=== PATIENT | female | born 1985 | race Caucasian/White ===

== ENCOUNTER 2016-08-29 07:51 | Emergency (ER) | payer OTHER ==
[~2016-08-29] VITALS: Ht 157.5 cm; Wt 101.0 kg
[~2016-08-29 07:51] MED LIST: BCPILLS PO; REVIEWED; ZYRUNK
[2016-08-29 07:54] VITALS: TEMP 36.4; Ht 157.5 cm; Wt 101.0 kg
--- NOTE | 2016-08-29 08:15 | EMERGENCY ROOM VISIT NOTE ---
ED Visit Note First contact with patient: 07:58 CHIEF COMPLAINT: Foot pain HISTORY OF PRESENT ILLNESS: This 30-year-old female patient presents to the emergency department ambulatory complaining of swelling and pain in the right foot at rest and worse with weight bearing. The patient works here at [employer] and was pulling a large cart full of food trays behind her yesterday. She states that the car ran into the back of her right foot. The patient rates the pain as sharp and 7/10. The patient has no relief of the pain. The patient is able to walk. No numbness or weakness. No ankle pain. There are no lacerations of the foot. The patient is able to move all of their toes and their ankle without pain. The patient has had a previous fracture in this foot. REVIEW OF SYSTEMS: GENERAL: A 6 system review of systems was completed with positives and pertinent negatives in the HPI. ALLERGIES: No known allergies MEDICATIONS: control pills PMH: None SOCIAL HISTORY: The patient is employed. She lives locally. PHYSICAL EXAM: Vital Signs: Reviewed Nurse's notes, vital signs stable. GENERAL : This is a 30-year-old female, in no acute distress, but appears in pain, well- developed, well-nourished. MUSCULOSKELETAL: There is no visual deformity of the right foot. There is minimal erythema but no ecchymosis. There is no warmth. There is tenderness and swelling over the posterior aspect of the right foot. The range of motion of the foot is non-limited secondary to pain. There is no tenderness over the plantar fascia. Dorsi flexion 5/5 and Plantar flexion 5/5. The skin is intact and there are no lacerations or puncture wounds. Dorsalis pedis pulse 2+. Capillary refill less than 2 seconds. EMERGENCY DEPARTMENT COURSE: I examined the patient. An X-ray of the right foot and ankle foot were reviewed by myself and radiology and reveals old fracture to the right fifth metatarsal and distal fibula. The patient states that this is where her foot was broken in the past. The patient was placed in a walking boot and declined crutches. The patient was discharged home in good condition. RIGHT ANKLE MIN 3 VIEWS ROUTINE CLINICAL HISTORY: right ankle pain Right pain COMPARISON: None. DISCUSSION: The bones and joint spaces appear intact. There is no evidence of fracture, dislocation or bony disease. Small old avulsion well corticated adjacent to the distal fibula. Ankle mortise is anatomically aligned. IMPRESSION: Small avulsion tip distal fibula appearing to be old radiographically. Mild soft tissue edema. RIGHT FOOT 3 VIEWS CLINICAL HISTORY: Right foot pain. FINDINGS: 3 views of the right foot are obtained. No prior studies are available for comparison at the time of dictation. The skeletal structures are well mineralized. No acute fracture is identified. An os trigonum is incidentally noted. There is cortical irregularity with faint lucency seen involving the proximal shaft of the fifth metatarsal. This may represent a subacute/healing fracture. The overlying soft tissues are within normal limits. IMPRESSION: 1. No acute fracture is identified. 2. There is ill-defined lucency with mild cortical regularity seen involving the proximal shaft of the fifth metatarsal. This is indeterminant, but may represent a subacute/healing fracture. Clinical correlation will be essential. Current/Historical Medications Scheduled Control Pills ( Control Pills), 1 TAB PO DAILY Miscellaneous Medications Cetirizine (Zyrtec Unkown Dose) Allergies Uncoded Allergies: NKDA (Allergy, Mild, 01/06/06) Vital Signs Date Time Temp Pulse Resp B/P Pulse Ox O2 Delivery O2 Flow Rate FiO2 08/29/16 09:36 70 16 127/94 98 Room Air 08/29/16 07:54 36.4 79 18 140/98 98 Room Air Departure Information Impression Primary Impression: Right foot sprain Additional Impression: Contusion of right foot Dispostion Home / Self-Care Condition GOOD Referrals Kendra Vasquez (PCP) Luda Mason Patient Instructions ED Sprain Foot, [facility] Additional Instructions Ibuprofen 600 mg every 6-8 hours for moderate pain Wear the walking boot when up and about over the next 2-3 days Follow-up with occupational medicine or orthopedics if the pain is not improving in the next 2-3 days Return with any worsening symptoms Problem Qualifiers Primary Impression: Right foot sprain Encounter type: initial encounter Qualified Codes: S93.601A - Unspecified sprain of right foot, initial encounter Additional Impression: Contusion of right foot Encounter type: initial encounter Qualified Codes: S90.31XA - Contusion of right foot, initial encounter
--- NOTE | 2016-08-29 09:03 | DIAGNOSTIC IMAGING REPORT ---
RIGHT FOOT 3 VIEWS CLINICAL HISTORY: Right foot pain. FINDINGS: 3 views of the right foot are obtained. No prior studies are available for comparison at the time of dictation. The skeletal structures are well mineralized. No acute fracture is identified. An os trigonum is incidentally noted. There is cortical irregularity with faint lucency seen involving the proximal shaft of the fifth metatarsal. This may represent a subacute/healing fracture. The overlying soft tissues are within normal limits. IMPRESSION: 1. No acute fracture is identified. 2. There is ill-defined lucency with mild cortical regularity seen involving the proximal shaft of the fifth metatarsal. This is indeterminant, but may represent a subacute/healing fracture. Clinical correlation will be essential. Electronically signed by: David Edward M.D. 08/29/2016 9:02 AM Dictated Date/Time: 08/29/2016 9:00 AM
--- NOTE | 2016-08-29 09:23 | DIAGNOSTIC IMAGING REPORT ---
RIGHT ANKLE MIN 3 VIEWS ROUTINE CLINICAL HISTORY: right ankle pain Right pain COMPARISON: None. DISCUSSION: The bones and joint spaces appear intact. There is no evidence of fracture, dislocation or bony disease. Small old avulsion well corticated adjacent to the distal fibula. Ankle mortise is anatomically aligned. IMPRESSION: Small avulsion tip distal fibula appearing to be old radiographically. Mild soft tissue edema. Electronically signed by: Carlos Bassett M.D. 08/29/2016 9:22 AM Dictated Date/Time: 08/29/2016 9:20 AM
[2016-08-29 09:36] VITALS: BP 127/94; PULSE 70; O2SAT 98
== END 2016-08-29 09:50 | disposition home or self-care (01) ==
LOC: C.EDB 07:52
DX: S93.601A Unspecified sprain of right foot, initial encounter (principal); S90.31XA Contusion of right foot, initial encounter; W22.8XXA Striking against or struck by other objects, initial encounter; Y92.239 Unspecified place in hospital as the place of occurrence of the external cause; Y99.0 Civilian activity done for income or pay; Z79.3 Long term (current) use of hormonal contraceptives

== ENCOUNTER → 2017-03-04 | Outpatient (CLI) | payer OTHER ==
[~2017-03-04] MED LIST changes: -REVIEWED
[2017-03-04 13:09] LABS: CHOLESTEROL/HDL RATIO 3.5
== END | disposition home or self-care (01) ==
LOC: C.LAB 09:37
PROVIDERS: ATTEND Nurse Practitioner Family
DX: Z00.00 Encounter for general adult medical examination without abnormal findings (principal)

== ENCOUNTER → 2017-07-30 | Outpatient (CLI) | payer OTHER | END | disposition home or self-care (01) | LOC: C.LAB1850 10:56 | PROVIDERS: ATTEND Obstetrics & Gynecology | DX: Z11.3 Encounter for screening for infections with a predominantly sexual mode of transmission (principal); Z32.01 Encounter for pregnancy test, result positive ==

== ENCOUNTER → 2017-07-30 | Outpatient (CLI) | payer OTHER | END | disposition home or self-care (01) | LOC: C.PAPS 13:35 | PROVIDERS: ATTEND Obstetrics & Gynecology | DX: Z01.419 Encounter for gynecological examination (general) (routine) without abnormal findings (principal) ==

== ENCOUNTER → 2017-08-01 | Outpatient (CLI) | payer OTHER | END | disposition home or self-care (01) | LOC: C.LAB 11:17 | PROVIDERS: ATTEND Obstetrics & Gynecology | DX: Z32.01 Encounter for pregnancy test, result positive (principal) ==

== ENCOUNTER → 2017-08-13 | Outpatient (CLI) | payer OTHER | END | disposition home or self-care (01) | LOC: C.LABSPEC 16:17 | PROVIDERS: ATTEND Obstetrics & Gynecology | DX: Z34.01 Encounter for supervision of normal first pregnancy, first trimester (principal) ==

== ENCOUNTER → 2017-09-04 | Outpatient (CLI) | payer OTHER ==
[2017-09-04 12:18] LABS: BASO % 0.4 %; BASO ABS # 0.04 K/uL (0-0.2); EOS % 0.6 %; EOS ABS # 0.07 K/uL (0-0.5); HEMATOCRIT 39.7 % (37-47); HEMOGLOBIN 13.4 g/dL (12.0-16.0); IG# 0.03 K/uL (0.00-0.02); LYMPH % 23.2 %; LYMPH ABS # 2.61 K/uL (1.2-3.4); MEAN CELL VOLUME 91.7 fL (80-100); MEAN CORPUSCULAR HEMOGLOBIN 30.9 pg (25-34); MEAN CORPUSCULAR HGB CONC 33.8 g/dl (32-36); MEAN PLATELET VOLUME 9.6 fL (7.4-10.4); MONO % 5.2 %; MONO ABS # 0.59 K/uL (0.11-0.59); NEUT % 70.3 %; NEUT ABS # 7.92 K/uL (1.4-6.5); PLATELET COUNT 358 K/uL (130-400); RED CELL DISTRIBUTION WIDTH CV 12.9 % (11.5-14.5); RED CELL DISTRIBUTION WIDTH SD 43.3 fL (36.4-46.3); WHITE BLOOD COUNT 11.26 K/uL (4.8-10.8)
== END ==
LOC: C.LAB 10:11
PROVIDERS: ATTEND Obstetrics & Gynecology
DX: Z34.01 Encounter for supervision of normal first pregnancy, first trimester (principal)

== ENCOUNTER → 2017-10-22 | Outpatient (CLI) | payer OTHER | END | disposition home or self-care (01) | LOC: C.LAB1850 10:06 | PROVIDERS: ATTEND Obstetrics & Gynecology | DX: Z34.02 Encounter for supervision of normal first pregnancy, second trimester (principal) ==

== ENCOUNTER → 2018-03-03 | Outpatient (CLI) | payer OTHER | END | disposition home or self-care (01) | LOC: C.LABSPEC 17:31 | PROVIDERS: ATTEND Obstetrics & Gynecology | DX: Z34.03 Encounter for supervision of normal first pregnancy, third trimester (principal) ==

== ENCOUNTER 2021-09-23 07:59 | Inpatient (IN) ==
[2021-09-23] MEDS ORDERED: OXYTOCIN 30 UNITS/500 ML BAG IV PRN ×3 (08:15→19:44)
--- NOTE | 2021-09-23 08:32 | History & Physical Report ---
Date of Service September 23, 2021 Assessment & Plan (1) Supervision of normal intrauterine in multigravida: Plan: Admit to L&D. Labs, IV, EFM/toco. OK for epidural when she desires. Willing for pitocin if needed. History of Present Illness Chief Complaint: labor Primary Care Provider: NO PCP 35yo @ 39 2/7, gush of clear fluid at midnight, then later began to develop contractions and also began to see greenish fluid. + movement. No vaginal bleeding. with obesity. Patient also has hearing impairment, uses hearing aids. Allergies Allergy/AdvReac Type Severity Reaction Status Date / Time mold Allergy Mild Wheezing Verified 09/23/21 08:26 No Known Drug Allergies Allergy Unknown . Verified 09/23/21 08:21 Home Medications Medication Instructions Recorded Confirmed Type prenat.vits,nahomi,[id number] 1 tab PO DAILY 02/24/21 09/18/21 History Patient History Medical History (Updated 09/04/21 @ 10:47 by Chelsea Cramer RN) 6 weeks follow-up Allergic rhinitis Asthma Bronchitis Counseling for initiation of control method Dysmenorrhea Encounter for routine pelvic examination Hearing impairment bilateral hearing aids Metrorrhagia Obstructive lung disease Restrictive lung disease Vaginal cyst Surgical History elective or therapeutic [place] teeth extracted Family History Grandfather (Maternal) Colorectal cancer Mother Endometriosis Uterine leiomyoma Dyslipidemia Family/Other Diabetes Osteoporosis Hypertension Father Afib Denies family history of Ovarian cancer Breast cancer Social History Smoking Status: Never smoker Second Hand Exposure: No; Hx Alcohol Use: No Hx Substance Use: No Preferred Language: Lithuanian marital status: Single marital status details: Db (32) [phone] Current Living Situation: Significant Other Current Living Situation Comment: lives with fob and son, 1 dog. 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 FHT Cat 1 [place] Q2-3 min SVE 2/80/-2 Constitutional: WD/WN, vitals as above Respiratory: normal respiratory effort, lungs clear to auscultation no respiratory distress Cardiovascular: Rate/Rhythm: regular rate and regular rhythm Gastrointestinal (Abdomen): Inspection/Auscultation: abdomen normal to inspection Percussion/Palpation: abdomen soft; abdomen nontender Gravid. No s/s chorio or abruption. Skin: no rashes, warm and dry Psychiatric: A+Ox3, euthymic affect Results & Data ([facility]) Vital Signs (Past 12 Hours) Vital Signs Temp Pulse Resp BP 09/23/21 08:06 36.7 C 87 20 160/77 H Coding Level of Care Code None Diagnoses Supervision of normal intrauterine in multigravida Z34.80
[2021-09-23 09:06] LABS: Hemoglobin 12.1 g/dL (12.0-16.0); Mean Corpuscular Hemoglobin 30.9 pg (25-34); Mean Corpuscular Hgb Conc 32.7 g/dL (32-36); Mean Corpuscular Volume 94.6 fL (80-100); Mean Platelet Volume 10.2 fL (7.4-10.4); Platelet Count 232 K/uL (130-400); RDW Coefficient of Variation 15.1 % (11.5-14.5); RDW Standard Deviation 51.6 fL (36.4-46.3); Red Blood Count 3.91 M/uL (4.2-5.4); White Blood Count 8.52 K/uL (4.8-10.8)
[2021-09-23] MEDS ORDERED: fentaNYL citrate 100 MCG/2 ML VIAL ONE ×2 (09:38→16:29)
[2021-09-23] MEDS ORDERED: SODIUM CHLORIDE 0.9% INJ 10 ML VIAL ONE ×2 (09:38→16:28)
[2021-09-23] MEDS ORDERED: ePHEDrine sulfate 50 MG/ML AMP ONE (09:38)
[2021-09-23] MEDS ORDERED: BUPIVACAINE 0.25% 30 ML VIAL ONE ×2 (09:38→16:29)
[2021-09-23] MEDS ORDERED: fentaNYL 2MCG/ML ROPIVACAINE 1.25MG/ML 100 ML BAG EPI ONE (09:39)
[2021-09-23] MEDS: LACTATED RINGER'S 1,000 ML IV PRN ×3 (09:44→16:34)
--- NOTE | 2021-09-23 10:05 | Anesthesiology Consultation ---
Date of Service September 23, 2021 Assessment & Plan Chart Review Chart Review: Acceptable Risk for Surgery, Patient NOT seen in Pre Admission Testing and Acceptable Risk for Labor Epidural Consults Requested none ASA ASA3 Proposed Anesthesia Anesthesia Type: Labor Epidural and CSE History Height/Weight Height: 5 ft 2 in Weight: 127 kg Allergies Allergy/AdvReac Type Severity Reaction Status Date / Time mold Allergy Mild Wheezing Verified 09/23/21 08:26 No Known Drug Allergies Allergy Unknown . Verified 09/23/21 08:21 Medications Home Medications Medication Instructions Recorded Confirmed Last Taken prenat.vits,nahomi,[id number] 1 tab PO DAILY 02/24/21 09/23/21 09/22/21 08:00 Active Medications Generic Name Dose Route Start Last Admin Trade Name Freq PRN Reason Stop Dose Admin Lactated Ringer's 1,000 mls @ 125 mls/hr 09/23/21 08:15 09/23/21 09:44 Lr IV 09/25/21 08:14 999 mls/hr .Q8H PRN Administration L&D Protocol Protocol Past Medical History Medical History 6 weeks follow-up Allergic rhinitis Asthma Bronchitis Counseling for initiation of control method Dysmenorrhea Encounter for routine pelvic examination Hearing impairment bilateral hearing aids Metrorrhagia Obstructive lung disease Restrictive lung disease Vaginal cyst Exercise / Class Metabolic Activity II 4-5 Yardwork/Stairs/Walk up hill Past Family History Family History Grandfather (Maternal) Colorectal cancer Mother Endometriosis Uterine leiomyoma Dyslipidemia Family/Other Diabetes Osteoporosis Hypertension Father Afib Denies family history of Ovarian cancer Breast cancer Past Surgical History Surgical History elective or therapeutic [place] teeth extracted Past Anesthesia History No Hx of Anesthesia Complications and No Family Hx of Anesthesia Complications History of PONV No Hx of PONV and No Hx of Motion Sickness Social History Smoking Status: Never smoker Hx Alcohol Use: No Hx Substance Use: No substance use type: does not use Physical Exam Vital Signs Last Vital Signs Temp 36.8 C 09/23/21 09:44 Pulse 84 09/23/21 10:00 Resp 20 09/23/21 09:44 BP 167/86 H 09/23/21 09:46 Pulse Ox 96 09/23/21 10:00 Testing Laboratory Results 09/23/21 08:49
[2021-09-23] MEDS ORDERED: PROMETHAZINE HCL 25 MG in SODIUM CHLORIDE 0.9% 50 ML IV PRN (10:33)
[2021-09-23] MEDS ORDERED: NALBUPHINE HCL INJ 10 MG/ML AMP IV PRN (10:33)
[2021-09-23] MEDS ORDERED: fentaNYL 2MCG/ML ROPIVACAINE 1.25MG/ML 100 ML BAG EPI PRN (10:33)
[2021-09-23] MEDS ORDERED: diphenhydrAMINE 50 MG/ML VIAL IV PRN (10:33)
[2021-09-23] MEDS ORDERED: NALOXONE HCL 1 MG in SODIUM CHLORIDE 0.9% 1000ML 1,000 ML IV PRN (10:33)
[2021-09-23] MEDS ORDERED: NALOXONE HCL 0.4 MG/1 ML VIAL/CARP IV PRN (10:33)
[2021-09-23] MEDS: ePHEDrine sulfate 50 MG/ML AMP IV PRN ×2 (10:53→10:59)
[2021-09-23] MEDS ORDERED: Nursing to Pharmacy Communication SCH (15:45)
--- NOTE | 2021-09-23 16:44 | Communication Note ---
Date of Service: September 23, 2021 At 1639, Patient epidural bolused w/ 12 ml 0.17% bupivacaine + 100 mcgs Fentanyl using incremental aspirations and injections. Vital signs stable.
[2021-09-23] MEDS ORDERED: SILVER NITR/POTASSIUM NITRATE APPLICATOR ONE ×2 (19:01→19:03)
[2021-09-23] MEDS ORDERED: bisacodyL 10 MG SUPP PR PRN (19:44)
[2021-09-23] MEDS ORDERED: DIPHTHERIA/TETANUS/PERTUSSIS 0.5 ML SYR/VIAL IM ONE (19:44)
[2021-09-23] MEDS ORDERED: ACETAMINOPHEN 325 MG TAB PO PRN (19:44)
[2021-09-23] MEDS ORDERED: oxyCODONE/ACETAMINOPHEN 5mg/325mg TAB PO PRN (19:44)
[2021-09-23] MEDS ORDERED: BENZOCAINE 20% AER SPR 82.5 GM CAN EXT PRN (19:44)
[2021-09-23] MEDS ORDERED: HYDROCORTISONE ACETATE 25 MG SUPP PR PRN (19:44)
--- NOTE | 2021-09-23 20:43 | Delivery Summary ---
Vaginal Delivery Summary Date of Service September 23, 2021 Vaginal Delivery Summary [facility] Patient is a 35-year-old 3 para 1-0-1-1 white female who presents at 39- 2/7 weeks with a history of spontaneous rupture of membranes. Contractions began after membranes ruptured. She received effective epidural analgesia. She then required Pitocin augmentation of her labor. She progressed to full dilation and pushed effectively over intact perineum for delivery of a viable male . After the head delivered the left arm then delivered and the rest of the delivered easily. The cord was very short, and therefore it was clamped and cut within several seconds of . The infant was then able to be placed on the mother's abdomen for further attention and drying. The infant was vigorous and moving all 4 limbs. Placenta was expressed intact with a three- vessel cord. Perineum was inspected and found to be intact. bleeding was controlled with dilute Pitocin. A skin tag was noted on the right inner thigh and patient requested its removal. This was done using scissors. Silver nitrate was used to control bleeding at the excision site. Estimated blood loss for the delivery was 200 cc. Mother and infant were doing well after delivery. [facility] [place]ag[place] Delivery Charge Delivery Type Details: [facility]
--- NOTE | 2021-09-23 20:53 | Anesthesia Procedure Note ---
Date of Service September 23, 2021 Anesthesia Post Epidural Note Vital Signs Vital Signs: Temp Pulse Resp BP Pulse Ox 37.4 C 87 18 191/94 H 98 09/23/21 19:35 09/23/21 20:51 09/23/21 20:35 09/23/21 20:51 09/23/21 18:55 Pain Intensity Abdomen: Pain Intensity: 0 Notes Mental Status: alert / awake / arousable Nausea / Vomiting: adequately controlled Pain: adequately controlled Airway Patency, RR, SpO2: stable & adequate BP & HR: stable & adequate Hydration State: stable & adequate Neuraxial Anesthesia: was administered and sensory block is resolving Anesthetic Complications: no major complications apparent Epidural: Removed without complications and With tip intact
[2021-09-23] MEDS: IBUPROFEN 600 MG TAB PO PRN (21:24)
[2021-09-23] MEDS: DOCUSATE SODIUM 100 MG CAP PO SCH (21:25)
[2021-09-24] MEDS: IBUPROFEN 600 MG TAB PO PRN ×2 (04:44→23:28)
[2021-09-24 06:06] LABS: Hematocrit (blood only) 33.7 % (37-47); Hemoglobin 10.9 g/dL (12.0-16.0); Mean Corpuscular Hemoglobin 31.1 pg (25-34); Mean Corpuscular Hgb Conc 32.3 g/dL (32-36); Mean Platelet Volume 10.5 fL (7.4-10.4); Platelet Count 218 K/uL (130-400); RDW Coefficient of Variation 15.6 % (11.5-14.5); RDW Standard Deviation 54.6 fL (36.4-46.3); Red Blood Count 3.51 M/uL (4.2-5.4); White Blood Count 14.83 K/uL (4.8-10.8)
--- NOTE | 2021-09-24 07:05 | Obstetrical Progress Note ---
Date of Service September 24, 2021 Assessment & Plan (1) Encounter for care and examination after delivery: satisfactory exam continue current care plan Subjective Ambulation: ambulating normally Voiding: no voiding problems Passing Gas:: Yes Diet Tolerance:: regular diet Lochia:: Moderate Feeding Type:: bottle feeding Review of Systems All systems reviewed & are unremarkable except as noted in HPI & below Physical Exam Constitutional WD/WN, vitals as above Psychiatric A+Ox3, euthymic affect Genitourinary OB Exam Abdomen: + fundal height Fundus: + firm and + relation to umbilicus (2 below) Results & Data ([facility]) Vital Signs (Past 12 Hours) Vital Signs Temp Pulse Pulse Resp BP BP Pulse Ox 09/24/21 03:15 98.2 F 76 18 136/85 95 09/23/21 23:55 98.1 F 73 18 122/74 09/23/21 21:05 98.8 F 18 09/23/21 21:01 79 157/77 H 09/23/21 20:59 80 178/87 H 09/23/21 20:53 80 164/81 H 09/23/21 20:51 87 191/94 H 09/23/21 20:36 75 157/85 H 09/23/21 20:35 18 09/23/21 20:28 80 163/82 H 09/23/21 20:27 84 170/87 H 09/23/21 20:20 83 179/97 H 09/23/21 20:06 81 165/87 H 09/23/21 20:05 18 09/23/21 19:50 88 18 140/63 09/23/21 19:37 86 160/76 H 09/23/21 19:35 99.3 F 18 09/23/21 19:24 84 156/76 H 09/23/21 19:22 88 172/86 H 09/23/21 19:20 90 162/75 H 09/23/21 19:05 97 H 146/75 H
[2021-09-24] MEDS: PRENATAL VITAMIN 1 TAB PO SCH (08:27)
[2021-09-24] MEDS: DOCUSATE SODIUM 100 MG CAP PO SCH ×2 (08:27→21:52)
[2021-09-24] MEDS ORDERED: bisacodyL 5 MG TABEC PO SCH (20:00)
[2021-09-25 05:55] LABS: Hemoglobin 11.7 g/dL (12.0-16.0)
--- NOTE | 2021-09-25 06:46 | Obstetrical Progress Note ---
Date of Service <Kat Amaya MD - Last Filed: 09/25/21 07:00> September 25, 2021 Assessment & Plan <Kat Amaya MD - Last Filed: 09/25/21 07:00> (1) Encounter for care and examination after delivery: 35 yo now PPD2 from at 39wk2d -Continue routine care, discharge today -Vitals reviewed- HDS, afebrile -Blood type O+, GBS-, Rubella immune -Pain control with ibuprofen, acetaminophen PRN -Hgb 11.7, asymptomatic -F/u in 6 weeks with OB <Antoinette Ford MD, FACOG - Last Filed: 09/26/21 16:47> (1) Encounter for care and examination after delivery: Subjective <Kat Amaya MD - Last Filed: 09/25/21 07:00> Ambulation: ambulating normally Voiding: no voiding problems Passing Gas:: Yes Diet Tolerance:: regular diet Lochia:: Small Feeding Type:: bottle feeding Current Pain Level(1-10): 0 Pt doing well overall, no acute complaints or distress. Pain well controlled with medication. Looks forward to going home today. Review of Systems Denies fever/chills. Denies dyspnea, cough. Denies chest pain. Denies breast pain or discharge. Denies dysuria. Denies headache. Denies back pain. Physical Exam <Kat Amaya MD - Last Filed: 09/25/21 07:00> General: Alert, oriented, no acute distress Cardiac: Regular rate and rhythm, normal S1, S2. No murmurs appreciated. Respiratory: Clear to auscultation b/l with good air flow entry, symmetric chest rise and fall. No wheezes or crackles. No increased work of breathing or accessory muscle use Abdomen: Soft, nontender, nondistended. Fundus firm and palpable at 2 cm below umbilicus. No guarding or rebound. Skin: No rashes or lesions Extremities: Warm, dry, well-perfused with capillary refill <2s b/l. +B/l lower extremity edema, no erythema or tenderness. Negative Azael's sign b/l. Results & Data ([facility]) <Kat Amaya MD - Last Filed: 09/25/21 07:00> Vital Signs (Past 12 Hours) Vital Signs Temp Pulse Pulse Resp BP Pulse Ox 09/24/21 23:15 36.8 C 75 16 140/87 97 09/24/21 19:45 36.7 C 86 18 125/78 98 <Antoinette Ford MD, FACOG - Last Filed: 09/26/21 16:47> Co-Signing Physician Notes Resident Physician Supervision Note: I was present with Dr. Amaya during the history and exam. I discussed the case with the resident and agree with the findings and plan as documented in the note. Any exceptions or clarifications are listed here: [None] Documented By: Antoinette Ford MD, FACOG Resident Activity Tracking <Kat Amaya MD - Last Filed: 09/25/21 07:00> Resident Involvement: Resident Care Provided Care Provided: OB Delivery
[2021-09-25] MEDS: IBUPROFEN 600 MG TAB PO PRN (07:41)
[2021-09-25] MEDS: DOCUSATE SODIUM 100 MG CAP PO SCH (07:41)
[2021-09-25] MEDS: PRENATAL VITAMIN 1 TAB PO SCH (07:41)
[2021-09-25 08:18] VITALS: BP 148/91; TEMP 97.5; O2SAT 96
[2021-09-25 09:10] LABS: Albumin Level 3.3 gm/dl (3.4-5.0); Bilirubin,Total 0.3 mg/dl (0.2-1.0); Calcium 8.2 mg/dl (8.5-10.1); Creatinine Clr Calc Pharmacy 134.9 ml/min; Est GFR (African American) 120.5 ml/min; Globulin 3.2 gm/dl (2.5-4.0); Potassium 3.6 mmol/L (3.5-5.1); Total Protein 6.5 gm/dl (6.0-8.3)
[2021-09-25 09:17] VITALS: PULSE 86
--- NOTE | 2021-09-25 09:37 | Communication Note ---
Date of Service: September 25, 2021 CMP was ordered this AM after nursing notified of mildly elevated BPs, primarily in R arm and one in L. Pt notes this happens to her mom as well. Denies STARKS, vision change, CP, SOB, RUQ/epigastric pain. Platelets yesterday were wnl, CMP today stable. I think ok to d/c still, will have pt return to office later this week for BP check. PET s/s reviewed, pt verbalized understanding
== END 2021-09-25 11:25 | disposition home or self-care (01) | DRG 807 ==
LOC: OPB 07:59 → 4S1 08:00 → 4S2 22:00
DX: O99.72 Diseases of the skin and subcutaneous tissue complicating childbirth; L91.8 Other hypertrophic disorders of the skin; O99.892 Other specified diseases and conditions complicating childbirth; O99.214 Obesity complicating childbirth; Z3A.39 39 weeks gestation of pregnancy; E66.01 Morbid (severe) obesity due to excess calories; Z91.09 Other allergy status, other than to drugs and biological substances; Z37.0 Single live birth; Z97.4 Presence of external hearing-aid; H91.93 Unspecified hearing loss, bilateral